=== PATIENT | male | born 1960 | race African-American/Black ===

== ENCOUNTER 2017-05-06 20:37 | Emergency (ER) | payer MEDICARE, MEDICAID ==
[~2017-05-06] VITALS: Ht 152.4 cm; Wt 80.0 kg
[2017-05-07 00:49] LABS: HEMATOCRIT. 40.7 % (42.0-52.0); HEMOGLOBIN. 13.8 g/dL (14.0-18.0); MEAN CORPUSCULAR HEMOGLOBIN 32.8 pg (28.0-32.0); MEAN CORPUSCULAR VOLUME 97.1 fL (80.0-94.0); MEAN PLATELET VOLUME 9.2 fl (7.4-10.4); PLATELET 217 x1000/uL (130-400); RED BLOOD CELL COUNT 4.19 mill/uL (4.7-6.1); RED CELL DISTRIBUTION WIDTH 13.4 % (11.6-14.6)
[2017-05-07 00:55] LABS: CHLORIDE 99 mEq/L (98-107)
[2017-05-07] MEDS ORDERED: VALPROATE SODIUM 250MG/5ML UDC PO ONE (02:30)
[2017-05-07] MEDS ORDERED: LEVETIRACETAM 500MG/5ML CUP PO ONE (02:30)
[2017-05-07 02:35] LABS: CLARITY URINE CLEAR (CLEAR); COLOR URINE YELLOW (YELLOW); KETONES URINE NEGATIVE (NEGATIVE); NITRITE URINE NEGATIVE (NEGATIVE); OCCULT BLOOD URINE NEGATIVE (NEGATIVE); PROTEIN URINE NEGATIVE (NEGATIVE); SPECIFIC GRAVITY URINE 1.011 (1.005-1.030)
[2017-05-07 02:36] LABS: LEUKOCYTE ESTERASE URINE NEGATIVE (NEGATIVE); UROBILINOGEN URINE 0.2 E.U./dL (0.2-1.0)
[2017-05-07 03:03] LABS: PLATELET ESTIMATE NORMAL
[2017-05-07 04:20] VITALS: BP 125/65
== END 2017-05-07 04:20 | disposition home or self-care (01) ==
LOC: ER 05-07 04:20
DX: J06.9 Acute upper respiratory infection, unspecified (principal); R62.50 Unspecified lack of expected normal physiological development in childhood; J98.11 Atelectasis; E78.5 Hyperlipidemia, unspecified; F80.1 Expressive language disorder; Z93.1 Gastrostomy status; Z99.3 Dependence on wheelchair
CPT/HCPCS: 36415; 51702; 71045; 80053; 81003; 85025; 87804; 93005; 99285; A4315

== ENCOUNTER 2017-11-30 16:29 | Inpatient (IN) | payer MEDICARE, MEDICAID ==
[~2017-11-30] VITALS: Ht 170.2 cm; Wt 80.7 kg
[2017-11-30 18:24] LABS: CHLORIDE 97 mEq/L (98-107)
[2017-11-30 18:25] LABS: HEMATOCRIT. 44.6 % (42.0-52.0); HEMOGLOBIN. 15.1 g/dL (14.0-18.0); MEAN CORPUSCULAR VOLUME 100.2 fL (80.0-94.0); MEAN PLATELET VOLUME 11.7 fl (7.4-10.4); PLATELET 96 x1000/uL (130-400); RED BLOOD CELL COUNT 4.45 mill/uL (4.7-6.1); RED CELL DISTRIBUTION WIDTH 14.3 % (11.6-14.6)
[2017-11-30] MEDS ORDERED: SODIUM CHLORIDE 0.9% 1,000 ML IV ONE (19:00)
[2017-11-30 19:09] LABS: PLATELET ESTIMATE SLIGHTLY DECREASED
[2017-11-30] MEDS ORDERED: VANCOMYCIN 1 G PREMIX 200 ML IV STA (19:18)
[2017-11-30] MEDS ORDERED: PIPERACILLIN/TAZOBACTAM 3.375GM/50ML PREMIX IV ONE (19:30)
[2017-11-30] MEDS ORDERED: CLONIDINE 0.1MG TABLET PO PRN (19:45)
[2017-11-30] MEDS ORDERED: MORPHINE SULFATE 2 MG/ML CPJ (NOT FOR IM USE) IV PRN (19:45)
[2017-11-30] MEDS ORDERED: DIPHENHYDRAMINE 50MG/ML VIAL IV PRN (19:45)
[2017-11-30] MEDS ORDERED: IPRATROPIUM/ALBUTEROL 0.5-3(2.5)MG/3ML NEB INH PRN (19:45)
[2017-11-30] MEDS ORDERED: GUAIFENESIN 200MG/10ML SUGAR FREE UDC PO PRN (19:45)
[2017-11-30] MEDS ORDERED: ACETAMINOPHEN 325MG TABLET PO PRN (19:45)
[2017-11-30] MEDS ORDERED: DOCUSATE SODIUM 100MG CAPSULE PO PRN (19:45)
[2017-11-30] MEDS ORDERED: HYDROCODONE/ACETAMINOPHEN 5/325MG TABLET PO PRN (19:45)
[2017-11-30] MEDS ORDERED: MAGNESIUM/ALUMINUM HYDROXIDE/SIMETHICONE 30ML UDC PO PRN (19:45)
[2017-11-30] MEDS ORDERED: LORAZEPAM 2MG/ML CPJ IV PRN (19:45)
[2017-11-30] MEDS ORDERED: ONDANSETRON HCL 4MG/2ML INJ IV PRN (19:45)
[2017-11-30] MEDS ORDERED: NA PHOS,M-B/NA PHOS,DI-BA ENEMA 118ML PR PRN (19:45)
[2017-11-30 20:31] LABS: CHLORIDE 99 mEq/L (98-107)
[2017-11-30 22:00] VITALS: BP 141/61
[2017-11-30] MEDS ORDERED: MORPHINE SULFATE 4 MG/ML CPJ (NOT FOR IM USE) IV PRN (22:00)
[2017-11-30] MEDS: ENOXAPARIN 40MG/0.4ML SYR SUBCUT SCH (22:30)
[2017-11-30] MEDS ORDERED: LEVOFLOXACIN 500MG PREMIX 100 ML IV SCH (23:00)
[2017-12-01] VITALS: BP 129/75
[2017-12-01] MEDS ORDERED: SIMV20TA6 GT (00:04)
[2017-12-01] MEDS ORDERED: ESOM20CA GT (00:04)
[2017-12-01] MEDS ORDERED: LACT10SO6 GT (00:04)
[2017-12-01] MEDS ORDERED: ERGO2000 GT (00:04)
[2017-12-01] MEDS ORDERED: LEVE10006 GT (00:04)
[2017-12-01] MEDS ORDERED: CALCITONIN (00:04)
[2017-12-01] MEDS ORDERED: VALP250S5 GT (00:04)
[2017-12-01] MEDS ORDERED: NITROFURANTOIN GT (00:04)
[2017-12-01] MEDS ORDERED: LEVO25TA7 GT (00:04)
[2017-12-01] MEDS ORDERED: LACO150T2 GT (00:04)
[2017-12-01] MEDS ORDERED: BISA10SU8 RC (00:04)
[2017-12-01] MEDS: SODIUM CHLORIDE 0.45% 1,000 ML IV SCH (00:26)
[2017-12-01 04:00] VITALS: BP 110/54
[2017-12-01] MEDS ORDERED: NON FORMULARY PATIENT HOME MED EA XX SCH (05:00)
[2017-12-01 07:58] VITALS: BP 115/76
[2017-12-01] MEDS: VIMPAT 150 MG GT SCH ×2 (08:06→17:21)
[2017-12-01] MEDS: VALPROIC ACID 250MG CAPSULE PO SCH ×3 (09:28→17:21)
[2017-12-01] MEDS: ASPIRIN 81MG EC TABLET PO SCH (09:28)
[2017-12-01] MEDS: LEVETIRACETAM 500MG/5ML CUP PO SCH ×2 (09:29→20:31)
[2017-12-01 10:46] LABS: HEMATOCRIT. 42.8 % (42.0-52.0); HEMOGLOBIN. 14.7 g/dL (14.0-18.0); MEAN CORPUSCULAR HEMOGLOBIN 34.5 pg (28.0-32.0); MEAN CORPUSCULAR VOLUME 100.6 fL (80.0-94.0); MEAN PLATELET VOLUME 10.8 fl (7.4-10.4); PLATELET 123 x1000/uL (130-400); RED BLOOD CELL COUNT 4.26 mill/uL (4.7-6.1); RED CELL DISTRIBUTION WIDTH 14.2 % (11.6-14.6)
[2017-12-01 11:28] LABS: CHLORIDE 102 mEq/L (98-107)
[2017-12-01 11:36] LABS: HDL CHOLESTEROL 31 mg/dL (40-59)
[2017-12-01 11:38] LABS: LDL CHOLESTEROL 49 mg/dL (5-100)
[2017-12-01 11:42] LABS: T4 FREE 1.32 ng/dL (0.76-1.46)
[2017-12-01 12:00] VITALS: BP 127/57
[2017-12-01 16:35] VITALS: BP 134/76
[2017-12-01 20:00] VITALS: BP 133/95
[2017-12-01] MEDS: ENOXAPARIN 40MG/0.4ML SYR SUBCUT SCH (20:31)
[2017-12-01 20:59] LABS: CREATINE KINASE 44 IU/L (39-308)
[2017-12-01 21:00] LABS: CREATINE KINASE MB FRACTION 1.5 ng/mL (0.5-3.6)
[2017-12-01] MEDS: LEVOFLOXACIN 500MG PREMIX 100 ML IV SCH (23:48)
[2017-12-02] VITALS: BP 133/86
[2017-12-02] MEDS: ALBUTEROL (0.083%) 2.5MG/3ML NEB HHN SCH ×5 (00:05→20:09)
[2017-12-02 01:40] LABS: CREATINE KINASE 41 IU/L (39-308); CREATINE KINASE MB FRACTION 1.1 ng/mL (0.5-3.6)
[2017-12-02 04:00] VITALS: BP 116/60
[2017-12-02 08:30] VITALS: BP 128/60
[2017-12-02] MEDS: VIMPAT 150 MG GT SCH ×2 (09:06→16:31)
[2017-12-02] MEDS: VALPROIC ACID 250MG CAPSULE PO SCH ×3 (09:06→16:31)
[2017-12-02] MEDS: ASPIRIN 81MG EC TABLET PO SCH (09:06)
[2017-12-02] MEDS: LEVETIRACETAM 500MG/5ML CUP PO SCH ×2 (09:06→21:30)
[2017-12-02 10:19] LABS: CREATINE KINASE 41 IU/L (39-308)
[2017-12-02 10:20] LABS: CREATINE KINASE MB FRACTION 1.4 ng/mL (0.5-3.6)
[2017-12-02] MEDS: SODIUM CHLORIDE 0.45% 1,000 ML IV SCH (11:33)
[2017-12-02 12:00] VITALS: BP 102/56
[2017-12-02 14:15] LABS: PLATELET ESTIMATE SLIGHTLY DECREASED
[2017-12-02 16:00] VITALS: BP 108/57
[2017-12-02 20:00] VITALS: BP 110/55
[2017-12-02] MEDS: LEVOFLOXACIN 500MG PREMIX 100 ML IV SCH (21:30)
[2017-12-02] MEDS: ENOXAPARIN 40MG/0.4ML SYR SUBCUT SCH (21:32)
[2017-12-03] VITALS: BP 131/65
[2017-12-03] MEDS: ALBUTEROL (0.083%) 2.5MG/3ML NEB HHN SCH ×6 (00:49→21:19)
[2017-12-03 04:00] VITALS: BP 133/91
[2017-12-03 06:23] LABS: HEMATOCRIT 39.2 % (42.0-52.0); HEMOGLOBIN 13.4 g/dL (14.0-18.0); MEAN CORPUSCULAR HEMOGLOBIN 34.3 pg (28.0-32.0); MEAN CORPUSCULAR VOLUME 100.1 fL (80.0-94.0); PLATELET 119 x1000/uL (130-400); RED BLOOD CELL COUNT 3.92 mill/uL (4.7-6.1); RED CELL DISTRIBUTION WIDTH 14.2 % (11.6-14.6)
[2017-12-03 06:39] LABS: CHLORIDE 103 mEq/L (98-107)
[2017-12-03 08:00] VITALS: BP 104/70
[2017-12-03] MEDS: LEVETIRACETAM 500MG/5ML CUP PO SCH ×2 (09:34→21:39)
[2017-12-03] MEDS: VALPROIC ACID 250MG CAPSULE PO SCH ×3 (09:34→18:16)
[2017-12-03] MEDS: ASPIRIN 81MG EC TABLET PO SCH (09:35)
[2017-12-03 12:00] VITALS: BP 120/58
[2017-12-03] MEDS: VIMPAT 150 MG GT SCH ×2 (13:04→18:16)
[2017-12-03] MEDS: SODIUM CHLORIDE 0.45% 1,000 ML IV SCH (15:57)
[2017-12-03 16:00] VITALS: BP_SYST 115; BP_SYST 120; BP_SYST 129; BP_DIAS 49; BP_DIAS 58; BP_DIAS 67
[2017-12-03] MEDS: LEVOFLOXACIN 500MG PREMIX 100 ML IV SCH (21:40)
[2017-12-03] MEDS: ENOXAPARIN 40MG/0.4ML SYR SUBCUT SCH (21:41)
[2017-12-04] VITALS: BP 130/52
[2017-12-04] MEDS: ALBUTEROL (0.083%) 2.5MG/3ML NEB HHN SCH ×7 (01:00→21:01)
[2017-12-04 04:00] VITALS: BP 120/63
[2017-12-04 06:58] LABS: HEMATOCRIT 39.3 % (42.0-52.0); HEMOGLOBIN 13.5 g/dL (14.0-18.0); MEAN CORPUSCULAR HEMOGLOBIN 34.5 pg (28.0-32.0); MEAN CORPUSCULAR VOLUME 100.2 fL (80.0-94.0); PLATELET 135 x1000/uL (130-400); RED BLOOD CELL COUNT 3.92 mill/uL (4.7-6.1); RED CELL DISTRIBUTION WIDTH 14.1 % (11.6-14.6)
[2017-12-04] MEDS: LEVETIRACETAM 500MG/5ML CUP PO SCH ×2 (08:51→21:27)
[2017-12-04] MEDS: ASPIRIN 81MG EC TABLET PO SCH (08:51)
[2017-12-04] MEDS: VALPROIC ACID 250MG CAPSULE PO SCH ×3 (08:51→18:13)
[2017-12-04] MEDS: SODIUM CHLORIDE 0.45% 1,000 ML IV SCH ×2 (08:52→23:34)
[2017-12-04] MEDS: VIMPAT 150 MG GT SCH ×2 (09:00→17:00)
[2017-12-04 12:23] VITALS: BP 93/42
[2017-12-04 16:00] VITALS: BP 115/51
[2017-12-04 20:00] VITALS: BP 120/66
[2017-12-04] MEDS: ENOXAPARIN 40MG/0.4ML SYR SUBCUT SCH (21:27)
[2017-12-04] MEDS: LEVOFLOXACIN 500MG PREMIX 100 ML IV SCH (21:28)
[2017-12-05] VITALS: BP 110/51
[2017-12-05] MEDS: ALBUTEROL (0.083%) 2.5MG/3ML NEB HHN SCH ×5 (00:49→16:49)
[2017-12-05] MEDS: SODIUM CHLORIDE 0.45% 1,000 ML IV SCH (02:34)
[2017-12-05 04:00] VITALS: BP 117/44
[2017-12-05 08:00] VITALS: BP 114/47
[2017-12-05] MEDS: ASPIRIN 81MG EC TABLET PO SCH (09:44)
[2017-12-05] MEDS: VALPROIC ACID 250MG CAPSULE PO SCH ×2 (09:44→12:27)
[2017-12-05] MEDS: LEVETIRACETAM 500MG/5ML CUP PO SCH (09:44)
[2017-12-05] MEDS: VIMPAT 150 MG GT SCH (10:20)
[2017-12-05 12:00] VITALS: BP 104/45
[2017-12-05 15:29] VITALS: BP 106/45
[2017-12-05 16:54] VITALS: BP 107/44
== END 2017-12-05 18:00 | disposition home or self-care (01) | DRG 871 ==
LOC: EDBEDREQ 19:42 → EDBEDREQTM 19:42 → EDBEDREQSVC 19:42 → ER 19:50 → 8WST 19:51 → ENRESERV 20:11
PROVIDERS: ADMIT Internal Medicine; ATTEND Internal Medicine
DX: A41.9 Sepsis, unspecified organism (principal); J69.0 Pneumonitis due to inhalation of food and vomit; J96.00 Acute respiratory failure, unspecified whether with hypoxia or hypercapnia; F72 Severe intellectual disabilities; E86.0 Dehydration; I10 Essential (primary) hypertension; R13.10 Dysphagia, unspecified; E03.9 Hypothyroidism, unspecified; G40.909 Epilepsy, unspecified, not intractable, without status epilepticus; Z99.3 Dependence on wheelchair; Z74.01 Bed confinement status; Z79.899 Other long term (current) drug therapy
CPT/HCPCS: 36415; 71045; 80048; 80053; 80061; 82550; 82553; 83036; 83605; 83880; 84439; 84443; 84484; 85025; 85027; 85379; 93005; 93306; 93970; 94640; 96365; 99285; J1650; J1956; J3370; J7030; J7611

== ENCOUNTER 2018-02-08 12:49 | Emergency (ER) | payer MEDICARE, MEDICAID ==
[~2018-02-08] VITALS: Ht 180.3 cm; Wt 92.0 kg
[~2018-02-08 12:49] MED LIST: BISA10SU8 RC; CALCITONIN; ERGO2000 GT; ESOM20CA GT; LACO150T2 GT; LACT10SO6 GT; LEVE10006 GT; LEVO25TA7 GT; NITROFURANTOIN GT; SIMV20TA6 GT; VALP250S5 GT
[2018-02-08] MEDS ORDERED: DIATR MEGLU/DIATRIZOATE SOLN 30ML ONE (14:46)
[2018-02-08 15:38] VITALS: BP 124/70
== END 2018-02-08 16:46 ==
LOC: ER 14:13
DX: Z46.59 Encounter for fitting and adjustment of other gastrointestinal appliance and device (principal); R03.0 Elevated blood-pressure reading, without diagnosis of hypertension; R62.50 Unspecified lack of expected normal physiological development in childhood
CPT/HCPCS: 74018; 99284; Q9963

== ENCOUNTER 2018-11-02 09:52 | Emergency (ER) | payer MEDICARE, OTHER ==
[~2018-11-02] VITALS: Ht 172.7 cm; Wt 91.0 kg
[2018-11-02] MEDS ORDERED: DIATR MEGLU/DIATRIZOATE SOLN 30ML PO ONE (12:45)
[2018-11-02] MEDS ORDERED: DIATR MEGLU/DIATRIZOATE SOLN 30ML ONE (15:02)
[2018-11-02 15:45] VITALS: BP 102/55
== END 2018-11-02 16:23 | disposition home or self-care (01) ==
LOC: ER 09:54
DX: K94.23 Gastrostomy malfunction (principal); E78.00 Pure hypercholesterolemia, unspecified; E03.9 Hypothyroidism, unspecified; D64.9 Anemia, unspecified; Z79.899 Other long term (current) drug therapy
CPT/HCPCS: 43762; 74018; 99284; Q9963